=== PATIENT | male | born 1965 | race Caucasian/White ===

== ENCOUNTER 2020-01-27 10:34 | Emergency (ER) | payer OTHER, SELFPAY ==
[2020-01-27 10:35] VITALS: BP 135/85; PULSE 78; RESP 16; TEMP 36.1; O2SAT 100; BMI 20.5
--- NOTE | 2020-01-27 10:58 | ED.VIS.GEN ---
History of Present Illness Chief Complaint: Back Informant: Patient Narrative: She states that 2 days ago he was at work bent and turned to lift up approximately 10 pounds and when he stood up felt a pop in the right low back. He went to a chiropractor twice yesterday. He states he had x-rays. It was suggested that he see a medical doctor. He called his primary care physician and because this was Workmen's Comp. so that they could not see him so he came to the emergency. He denies any bowel or bladder dysfunction. No muscle weakness. He does state that he is better today but still has discomfort in the back and now notices discomfort in the bilateral legs. He denies any loss of muscle strength or weakness. Past Medical History - Allergies and Home Meds Allergies/Adverse Reactions: Allergies naproxen [From Aleve] Allergy (Verified 01/27/20 10:39) Hives sulfamethoxazole [From Bactrim] Allergy (Verified 01/27/20 10:39) Rash trimethoprim [From Bactrim] Allergy (Verified 01/27/20 10:39) Rash Smoking Status: Current some day smoker Review of Systems General: Denies: Chills, Fever, Sweats Eyes: Denies: Visual changes - bilaterally, Diplopia ENT: Denies: Rhinorrhea, Sore throat Cardiovascular: Denies: Chest pain, Palpitations Respiratory: Denies: Dyspnea, Cough, Dyspnea on exertion Gastrointestinal: Denies: Abdominal pain, Nausea, Vomiting, Diarrhea, Melena, Hematochezia Genitourinary: Denies: Dysuria, Hematuria, Frequency Musculoskeletal: Reports: Back pain, Extremity Pain Skin: Denies: Rash, Wounds Neurological: Denies: Headache, Weakness, Numbness Physical Exam Vital Signs/Narrative: Vital Signs Temp Pulse Resp BP Pulse Ox 01/27/20 10:35 97 F L 78 16 135/85 H 100 Inital Vital Signs reviewed: Yes General: Well nourished, Well developed, No Acute Distress Head: Normocephalic, Atraumatic Eyes: Perrl, EOMI ENT: Moist mucous membranes, No rhinorrhea Neck: Supple, Nontender Cardiovascular: Regular rate, Regular rhythm, No murmurs Respiratory: No distress, CTA bilaterally, Chest nontender Abdomen: Soft, Nontender, Nondistended, Normal bowel sounds Back: Normal Inspection, - - Has tenderness to palpation along the lumbar paraspinal musculature in the right SI joint. No tissue texture changes to suggest underlying abscess or infection Extremities: Nontender, No edema Skin: Normal color, No rash Neurological: Alert, Oriented x3, Cranial nerves II-XII grossly intact, Normal Strength, Normal Sensation, - - Antalgic gait Psychological: Normal affect, Normal Mood Diagnostic/Tx/Re-eval - Medical Decision Making Patient will be treated with anti-inflammatories, a few Kershaw, and Flexeril. He will follow-up with Workmen's Comp. Return instructions given. At this time I do not see any indication for emergent imaging (red flags). ED Disposition - Plan for ED Patient: Disposition: Home or Assisted Living Diagnosis: Acute lumbosacral myofascial strain Instructions: ED LUMBAR SPRAIN/STRAIN Prescriptions: cycloBENZAPRine HCl [Flexeril] 10 mg PO TID PRN #20 tab PRN Reason: Muscle Spasm Transmission Status: Pending to [id number] Ibuprofen [Motrin] 800 mg PO TID PRN PRN #20 tab PRN Reason: Pain Or Fever Transmission Status: Pending to [id number] Hydrocodone Bitart/Apap 5-325 [Kershaw 5MG-325MG] 1 tablet PO Q6H PRN PRN 3 Days #10 tablet PRN Reason: Pain Transmission Status: Sent to [facility] Referrals: Clinic,NOW [NON-STAFF] - As soon as possible
== END 2020-01-27 11:36 | disposition home or self-care (01) ==
LOC: ED 11:22
PROVIDERS: Emergency Provider Emergency Medicine; PCP Family Medicine
DX: S39.012A Strain of muscle, fascia and tendon of lower back, initial encounter (principal); F17.200 Nicotine dependence, unspecified, uncomplicated; X50.1XXA Overexertion from prolonged static or awkward postures, initial encounter; Y93.89 Activity, other specified; Y92.89 Other specified places as the place of occurrence of the external cause; Y99.0 Civilian activity done for income or pay
CPT/HCPCS: 99282

== ENCOUNTER → 2020-02-03 | Outpatient (CLI) | payer SELFPAY ==
[2020-01-31 15:10] VITALS: BMI 20.5
--- NOTE | 2020-02-03 16:47 | RAD_ITS ---
STUDY: X-RAY - ACUTE ABDOMINAL SERIES REASON FOR EXAM: Male, 54 years old. PATIENT STATES WHILE AT [employer] A COUPLE OF DAYS AGO SHE NOTICED A MASS ON HIS XRAY AND SHE WANTED HIM TO HAVE A FULL ABD SERIES WITH CHEST XRAY. PATIENT STATES NO HX OF CA OR ANY ABDOMEN OR CHEST COMPLAINTS AT THIS TIME. TECHNIQUE: Single view of the chest. Supine and upright, 2 views(s) of the abdomen were obtained. COMPARISON: Prior chest radiograph of 01/10/2013. FINDINGS: Lung paredes are mildly hyperexpanded without consolidation, atelectasis or pleural effusion. Multiple peripheral calcified granuloma of the left lung. Negative for other mass density. Normal size heart. Normal mediastinum and perez. Normal visualized pulmonary arteries. Normal visualized aortic arch and descending thoracic aorta. There is a non-specific bowel gas pattern. 4 moderate size calcified gallstones. 9 x 3 mm calcification of the right lower quadrant, potential appendicolith. Degenerative disc findings primarily visible at L2-3. RAD/Acute Abdomen Inc Chest IMPRESSION: Mild hyperexpansion consistent with a component of COPD and stable calcified granuloma of the left lung. Otherwise negative for consolidation, atelectasis, pleural effusion or mass density. Normal cardiac size. Unremarkable abdominal bowel gas pattern with no evidence of bowel obstruction or perforation. There are 4 moderate size calcified gallstones and a potential appendicolith in the right lower quadrant. Electronically Signed: Sienna Narayan MD at 20:04 EDT , Service support ,
== END | disposition home or self-care (01) ==
PROVIDERS: PCP Family Medicine; Referring Provider Family Medicine; Visit Provider Family Medicine
DX: R19.00 Intra-abdominal and pelvic swelling, mass and lump, unspecified site (principal)
CPT/HCPCS: 74022

== ENCOUNTER → 2020-02-23 | Outpatient (CLI) | payer OTHER, SELFPAY ==
[2020-02-10 15:02] VITALS: BMI 20.5
--- NOTE | 2020-02-23 12:47 | MRI_ITS ---
STUDY: MRI LUMBAR SPINE WITHOUT CONTRAST REASON FOR EXAM: Male, 54 years old. lumbar strain, lle paresthesias -- lifting injury 1 month ago, pain low back and left leg TECHNIQUE: Standardized fat and water weighted pulse sequences were obtained in the sagittal and axial planes. COMPARISON: None FINDINGS: Lumbar straightening. No significant scoliosis. Conus medullaris terminates normally at the L1 level. No acute fracture. No acute dislocation. No acute bone destruction. Normal paraspinal muscles. Sacrum intact. Normal aorta. Normal retroperitoneum. T12-L1: Schmorl''s nodes. Disc desiccation. Normal bilateral facet joints. Normal central canal and bilateral lateral recesses. Normal bilateral intervertebral neural foramina. L1-2: Schmorl''s nodes with mild endplate spondylosis. Shallow disc bulge. Minimal facet arthrosis. Normal central canal and bilateral lateral recesses. Normal bilateral intervertebral neural foramina. L2-3: Schmorl''s nodes with mild endplate spondylosis. Disc bulge with mild central canal narrowing. Minimal facet arthrosis. Normal bilateral lateral recesses. Normal bilateral intervertebral neural foramina. L3-4: Schmorl''s nodes. Shallow disc bulge. Minimal facet arthrosis. Normal central canal and bilateral lateral recesses. Neural foraminal narrowing without impingement. L4-5: Normal endplates. Shallow disc bulge. Minimal facet arthrosis. Normal central canal and bilateral lateral recesses. Neural foraminal narrowing without impingement. L5-S1: Schmorl''s nodes with mild endplate spondylosis. Shallow disc bulge. Minimal facet arthrosis. Normal central canal and bilateral lateral recesses. Neural foraminal narrowing without impingement. MRI/Spine Lumbar (Routine) IMPRESSION: Multilevel intervertebral disc disease with mild central canal narrowing at the L2-3 level Multilevel neural foraminal narrowing without impingement Lumbar straightening with mild osteoarthritic features Electronically Signed: Lasha Oshea DO at 8:17 EDT Tel , Service support ,
== END | disposition home or self-care (01) ==
PROVIDERS: PCP Family Medicine; Referring Provider Physician Assistant; Visit Provider Physician Assistant
DX: S33.9XXA Sprain of unspecified parts of lumbar spine and pelvis, initial encounter (principal)
CPT/HCPCS: 72148

== ENCOUNTER → 2020-06-08 14:30 | Outpatient (CLI) | payer OTHER, SELFPAY ==
[2020-02-24 15:18] VITALS: BMI 20.5
== END ==
PROVIDERS: PCP Family Medicine; Visit Provider Family Medicine
DX: B34.9 Viral infection, unspecified (principal)
CPT/HCPCS: 87635; U0003

== ENCOUNTER → 2021-04-24 12:16 | Outpatient (CLI) | payer SELFPAY ==
[2021-04-24 12:22] LABS: Bacteria 0 SEEN /hpf (None Seen); Red Blood Cells-Urine 0 SEEN /hpf (0-5); Squamous Epithelial Cells - UA 0 SEEN /hpf (0-5); White Blood Cells 0 SEEN /hpf (0-5)
[2021-04-24 15:44] LABS: Color, Urine Yellow (Yellow); Glucose, Dipstick Normal (Normal); Ketone-Dipstick Negative (Negative); Leukocyte Esterase-Dipstick Negative /ul (Negative); Nitrite-Dipstick Negative (Negative); Occult Blood-Urine 10 /ul (Negative); Protein-Dipstick Negative (Negative); Specific Gravity, Urine 1.025 (1.002-1.030); Urine Bilirubin Dipstick Negative (Negative); Urine Clarity Clear (Clear); Urine Urobilinogen Normal (Normal)
[2021-04-24 15:55] LABS: Mucous, Urine 1+ /hpf (<or=2+)
[2021-04-24 19:42] LABS: Chlamydia Trachomatis by PCR Negative (Negative); Neisserai gonorrhoeae by PCR Negative (Negative); Probe Check PASS; Sample Adequacy Control PASS; Specimen Processing Control PASS
== END ==
PROVIDERS: PCP Family Medicine; Referring Provider Family Medicine; Visit Provider Family Medicine
DX: N45.1 Epididymitis (principal)
CPT/HCPCS: 81001; 87086; 87088; 87491; 87591

== ENCOUNTER 2021-07-26 09:38 | Emergency (ER) | payer OTHER, SELFPAY ==
[2021-07-26 09:40] VITALS: BP 110/81; PULSE 94; RESP 16; TEMP 36.5; O2SAT 99; BMI 16.9
--- NOTE | 2021-07-26 09:58 | EDS_ITS ---
HPI History of Present Illness Chief Complaint: Back Detail of Chief Complaint: Patient presents to the emergency department c omplaint of back pain x1 week Informant: patient Narrative Narrative: Patient has had back pain for 1 week. Patient states that while at work 1 week ago he was lifting some boxes weighing 75 to 80 pounds and he felt sudden onset of severe pain in his mid back. Having severe pain at times with certain movements. He denies any pleuritic pain. Denies any pain radiating to the arms or legs. Patient states that in the past he has had pain in a similar area where his chiropractor told him he may have a rib head out of place. Prior similar symptoms: Yes PFSH [facility] Medical History (Updated 07/26/21 @ 10:[address] Mau Purcell, DO) Arthritis Home Medications acetaminophen 325 mg capsule 325 mg PO ONCE PRN 01/31/20 [History Last Taken Unknown] cyclobenzaprine 10 mg PO TID PRN #20 tablet 07/26/21 [Rx Last Taken Unknown] hydrocodone-acetaminophen 1 tab PO Q4H PRN PRN 2 Days #10 tablet 07/26/21 [Rx Last Taken Unknown] Allergy/AdvReac Type Severity Reaction Status Date / Time naproxen [From Aleve] Allergy Hives Verified 07/26/21 09:40 sulfamethoxazole Allergy Rash Verified 07/26/21 09:40 [From Bactrim] trimethoprim [From Bactrim] Allergy Rash Verified 07/26/21 09:40 Social History (Updated 02/24/20 @ 17:35 by Anand BOSE, LIDYA) Smoking Status: Current some day smoker alcohol intake: never ROS ROS ED Constitutional Constitutional ED: Reports systems reviewed and no addt'l complaints, except as documented; Denies body ache(s), change in weight or chills Eyes Eyes: Denies acute decrease in peripheral vision, change in vision, double vision or loss of vision ENT ENT ED: Reports none; Denies ear pain, lip swelling, loss taste/smell, neck pain, otalgia or sore throat Cardiovascular Cardiovascular: Reports none; Denies abdominal pain, chest pain with activity, leg edema, lightheadedness, palpitations, rapid heart rate or syncope Respiratory/Chest Respiratory/Chest: Reports none; Denies change in mental status, dry cough, dyspnea, hemoptysis, shortness of breath at rest or shortness of breath with exertion Gastrointestinal Gastrointestinal: Reports none; Denies abdominal pain, change in stool character, diarrhea, hematemesis, hematochezia, melena, rectal bleeding or v omiting Genitourinary Genitourinary ED: Reports none; Denies abdominal discomfort, anuria, dysuria, genital pain or polyuria Musculoskeletal Musculoskeletal: Reports none and back pain; Denies arthralgias, difficulty walking, extremity pain, muscle weakness or myalgias Integumentary Reports none; Denies abscess or rash Neurologic Neurologic: Reports none; Denies abnormal gait, confusion, focal weakness, frequent falls, headache(s), loss of vision, numbness, paresthesias, radicular pain, vertigo or weakness Psychiatric Psychiatric: Reports systems reviewed and no addt'l complaints, except as documented and none; Denies behavioral changes, confusion, difficulty concentrating, hallucinations, suicidal ideation, tactile hallucinations or visual hallucinations Endocrine Endocrinology: Denies none, cold intolerance, excessive sweating, fatigue or heat intolerance Hematologic/Lymphatic Hematologic/Lymphatic: Reports none; Denies anemia, easy bleeding or easy bru ising Allergic/Immunologic Allergic/Immunologic ED: Denies as per HPI, none, lip swelling, mouth swelling, throat swelling, tongue swelling or hives EXAM Physical Exam Const Vital Signs: 07/26/21 09:40 Temperature 97.7 F L Temperature Source Temporal Pulse Rate 94 Respiratory Rate 16 Blood Pressure 110/81 H Blood Pressure Mean 90 Pulse Ox 99 Oxygen Delivery Method Room Air Positive well nourished and well developed General Appearance ED: well developed and NAD HEENT Reports TM's clear and moist mucous membranes normocephalic and atraumatic; Negative for trauma or tenderness Tympanic Membrane ED: Yes TM's clear Eyes PERRL and EOMs intact bilaterally General Eye ED: Negative for pale conjunctiva or scleral icterus Neck no lymphadenopathy, supple and no JVD General: Negative for tenderness Chest Wall inspection of chest normal and palpation of chest normal Chest: Negative for tenderness Resp normal respiratory effort and clear to auscultation bilaterally Effort and Inspection: Negative for respiratory distress or pain with movement Auscultation: Negative for rhonchi, wheezes or diminished lung sounds Cardio regular rate, regular rhythm, S1 normal heart sound, S2 normal heart sound and no murmurs Peripheral Pulses: pulses 2+ throughout GI normal to inspection, nondistended, normoactive bowel sounds, soft to palpation, non-tender, non-distended and no masses Back/Spine no CVA tenderness Back/Spine Narrative: Patient with tenderness to palpation in the midline to the lower thoracic spine. There is no ecchymosis or bruising or evidence of trauma. There is no erythema or warmth noted. Negative straight leg raises. Deep tendon reflexes are plus 2 out of 4 bilaterally at the patella and Achilles. Patient has normal L5 extension bilaterally. Extremity normal to inspection General Extremety ED: Negative for edema General Extremity: Negative for edema Neuro oriented x3, CN's II-XII intact bilaterally, no sensory deficits noted and gait normal Sensorium / Orientation: awake, alert, oriented to person, oriented to place and oriented to time Motor Exam: strength 5/5 throughout and strength abnormal Psych mental status grossly normal Skin no rashes or lesions noted and no wounds MDM MDM MDM Narrative Medical decision making narrative: Patient had x-rays of the thoracic spine obtained and interpreted by radiology and myself as no acute fractures. Patient was noted to have some disc space narrowing but otherwise nothing else acute. Patient does not want work restrictions. Patient will be given a prescription for Flexeril and a few [place] for pain. He is advised to follow-up with corporate care in 3 to 5 days. Radiography Diagnostic Testing: Clinical Impression(s) from Imaging Studies Thoracic Spine X-Ray 07/26/21 10:10 IMPRESSION: Multilevel disc space narrowing and spondylosis. Electronically Signed: Terry Adame MD at 10:29 EST , Service support , Discharge Plan Triage Chief Complaint: Back ED Provider: Mau Purcell Dx/Rx/DC Orders Clinical Impression: Acute thoracic myofascial strain Instructions: ED Back Sprain/Strain Prescriptions: New cyclobenzaprine [cyclobenzaprine] 10 MG tablet 10 mg PO TID PRN (Reason: Muscle Spasm) Qty: 20 RF: 0 hydrocodone-acetaminophen [hydrocodone-acetaminophen] 1 TABLET tablet 1 tab PO Q4H PRN PRN (Reason: Pain) 2 Days Qty: 10 RF: 0 No Action acetaminophen [Tylenol] 325 mg capsule 325 mg PO ONCE PRNRF: 0 Primary Care Provider: Seb Mccormick Referrals: [facility] [GROUP OF PHYSICIANS] - 3-5 Days Seb Mccormick MD [Primary Care Provider] - Disposition Disposition: Home, Self Care
--- NOTE | 2021-07-26 10:10 | RAD_ITS ---
STUDY: X-RAY - THORACIC SPINE REASON FOR EXAM: Male, 56 years old. Pain, injury TECHNIQUE: 3 view(s) of the thoracic spine were obtained. COMPARISON: None. FINDINGS: Normal kyphosis of the thoracic spine. There is no substantial scoliosis. There is demineralization of the thoracic spine with endplate spondylosis. There is multilevel disc space narrowing of the thoracic spine. The soft tissue structures are unremarkable. RAD/Thoracic Spine 3 Views IMPRESSION: Multilevel disc space narrowing and spondylosis. Electronically Signed: Terry Adame MD at 10:29 EST , Service support ,
== END 2021-07-26 10:56 | disposition home or self-care (01) ==
PROVIDERS: Emergency Provider Emergency Medicine; PCP Family Medicine; Visit Provider Emergency Medicine
DX: S39.012A Strain of muscle, fascia and tendon of lower back, initial encounter (principal); F17.200 Nicotine dependence, unspecified, uncomplicated; X58.XXXA Exposure to other specified factors, initial encounter
CPT/HCPCS: 72072; 99282

== ENCOUNTER → 2024-02-06 | Outpatient (CLI) | payer SELFPAY ==
--- NOTE | 2024-02-06 13:00 | US_ITS ---
EXAM: US SOFT TISSUES HEAD AND NECK, THYROID CLINICAL INDICATION: Nontoxic single thyroid nodule TECHNIQUE: Greyscale and color doppler imaging was performed of the thyroid gland. COMPARISON: No relevant prior studies available. FINDINGS: LEFT THYROID LOBE: The left thyroid lobe measures 3.9 x 1.8 x 1.7 cm. Homogeneous echotexture with normal vascularity. No thyroid nodules are present. RIGHT THYROID LOBE: The right thyroid lobe measures 5.1 x 1.4 x 1.5 cm. Homogeneous echotexture with normal vascularity. No thyroid nodules are present. ISTHMUS: The thyroid isthmus measures 0.21 cm. No thyroid nodules are present. US/Thyroid IMPRESSION: No acute thyroid findings. No thyroid nodule identified. Electronically Signed: Ricci Camargo DO at 21:46 EDT ,
== END | disposition home or self-care (01) ==
PROVIDERS: PCP Family Medicine; Referring Provider Family Medicine; Visit Provider Family Medicine
DX: E04.1 Nontoxic single thyroid nodule (principal)
CPT/HCPCS: 76536

== ENCOUNTER 2025-05-04 16:46 | Emergency (ER) | payer OTHER, SELFPAY ==
[2025-05-04] VITALS (7 sets, daily range): BP systolic 124–141; BP diastolic 78–85; PULSE 65–81; RESP 12–24; TEMP 36.6; O2SAT 98–99; BMI 19.5
--- NOTE | 2025-05-04 17:01 | ED.RN ---
Spoke with Franklin Albert) systems manager of [facility]. He states that he is going to call [facility] to see if he needs drug tested.
--- NOTE | 2025-05-04 17:23 | EX.ED.GENINJ ---
HPI History of Present Illness Chief Complaint: Other, Pain/Inj Informant: patient and spouse/S.O. 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 At work today he was 27 with an outlet. And got electrocuted. No LOC. Said it went to his left hand. Since that time he has developed some mild nausea and chest discomfort. This occurred at 945 this morning. Send just feels exhausted. No cardiac history. Said he felt fine prior to being electrocuted. Prior similar symptoms: No Recent Illness/Hospitalization: No [facility] Medical History (Updated 05/04/25 @ 18:[address] Rogers Kunz MD) Arthritis Home Medications ?Medication ?Instructions ?Recorded ?Last Taken ?Type NK 05/04/25 Unknown History Allergy/AdvReac Type Severity Reaction Status Date / Time naproxen (From Aleve) Allergy Hives Verified 05/04/25 16:51 sulfamethoxazole (From Allergy Rash Verified 05/04/25 16:51 Bactrim) trimethoprim (From Bactrim) Allergy Rash Verified 05/04/25 16:51 Social History (Updated 02/24/20 @ 17:35 by Anand BSOE, PA) Smoking Status: Current some day smoker tobacco type: cigarettes alcohol intake: never ROS ROS ED ROS Narrative Denies recent illness. Constitutional Constitutional ED: Denies chills or fever(s) ENT ENT ED: Denies ear pain Cardiovascular Cardiovascular: Denies chest pain Respiratory/Chest Respiratory/Chest: Denies cough or dyspnea Gastrointestinal Gastrointestinal: Denies abdominal pain Genitourinary Genitourinary ED: Denies dysuria or hematuria Musculoskeletal Musculoskeletal: Denies arthralgias Integumentary Denies abscess Neurologic Neurologic: Denies headache(s) Psychiatric Psychiatric: Denies anxiety or depression Endocrine Endocrinology: Denies cold intolerance Hematologic/Lymphatic Hematologic/Lymphatic: Denies easy bleeding, easy bruising or lymphadenopathy Allergic/Immunologic Allergic/Immunologic ED: Denies mouth swelling, tongue swelling or urticaria EXAM Physical Exam Narrative Exam Narrative: 59-year-old male sitting upright in bed. Vital signs stable afebrile. Pulse ox 99% on room air no hypoxia. at bedside. H EENT exam pupils round react to light. Moist mutes membranes. Neck nontender no JVD. No lymphadenopathy. Lungs clear to auscultation bilaterally. Heart regular rhythm rate about 80 no murmur. Chest wall ribs nontender. Abdomen soft nontender. Normal bowel sounds without peritoneal signs. No distention. Moving all 4 extremities. 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 No dominguez. Normal radial pulses. Dorsi plantarflexion intact. Calves nontender. No edema. No cords. Normal range of motion. Neurologically is awake alert. Answer questions following commands. Back nontender. Const Vital Signs: 05/04/25 16:47 05/04/25 17:20 05/04/25 17:34 Temperature 97.9 F Temperature Source Temporal Pulse Rate 77 78 Respiratory Rate 17 12 Respiratory Effort Respiratory Pattern Blood Pressure 125/85 H Blood Pressure Mean 98 Pulse Ox 99 99 Oxygen Delivery Method Room Air Room Air 05/04/25 17:35 05/04/25 17:46 05/04/25 18:00 Temperature Temperature Source Pulse Rate 81 67 Respiratory Rate 24 H 12 Respiratory Effort Normal Non-Labored Respiratory Pattern Normal Blood Pressure Blood Pressure Mean Pulse Ox 98 99 Oxygen Delivery Method 05/04/25 19:00 05/04/25 20:00 Temperature Temperature Source Pulse Rate 77 65 Respiratory Rate 16 18 Respiratory Effort Respiratory Pattern Blood Pressure 141/78 H 125/84 H Blood Pressure Mean 99 97 Pulse Ox 98 98 Oxygen Delivery Method Room Air Room Air MDM MDM MDM Narrative Medical decision making narrative: 59-year-old male with atypical nonexertional chest pain and to be electrocuted at work today at 945 this morning. Exam benign. No dominguez. Cardiac workup will be done. Repeat exam patient is doing well at 6:37 PM. Exam benign and unchanged. We discussed test current test results. Awaiting for second troponin. If that is unremarkable be discharged to home. Patient doing well at 8:17 PM. Up for her today has not had any recent exertional chest pain or exertional dyspnea. Be discharged home outpatient follow-up with primary care physician. Follow-up for atypical chest pain. Patient and are comfortable with plan. History & Record Review Discussion w/independent historian: Patient and Family Additional record(s) reviewed:: Prior outpatient record and Prior labs Lab Data Attestation: I reviewed the patient's lab results. Lab results narrative: CBC unremarkable. White count of 6. H&H 14 and 41. Platelets 382. Chemistries show gap of 10. BUN and creatinine 11 and 0.8. Glucose 126. Troponin 7. 2-hour troponin is 11. CPK was 119. Labs: Laboratory Results - last 24 hr 05/04/25 05/04/25 17:35 19:40 WBC 6.7 RBC 4.56 L Hgb 14.2 Hct 41.7 MCV 91.4 MCH 31.1 MCHC 34.1 RDW Std Deviation 45.1 H RDW Coeff of Stephani 13.2 Plt Count 382 MPV 9.0 Immature Gran % (Auto) 0.200 Neut % (Auto) 49.3 Lymph % (Auto) 38.3 [place] % (Auto) 9.6 Eos % (Auto) 1.8 Baso % (Auto) 0.8 Absolute Neuts (auto) 3.3 Absolute Lymphs (auto) 2.55 Nucleated RBC % 0 Sodium 139 Potassium 3.7 Chloride 104 Carbon Dioxide 26.0 Anion Gap 10 BUN 11 Creatinine 0.89 Estim Creat Clear Calc 72.88 Est GFR (MDRD) Non-Af 98 BUN/Creatinine Ratio 12.0 Glucose 126 H Calcium 9.6 Total Creatine Kinase 119 Troponin T High Sens 7 Troponin T Hi Sens 2 Hr 11 Radiography Chest X-Ray - ED: 2 View, Read by ED Physician, Normal, Heart, Lungs, Mediastinum, Bony Structures, No Acute Disease and Chronic Changes Diagnostic Testing: Clinical Impression(s) from Imaging Studies Chest X-Ray 05/04/25 17:42 IMPRESSION: No focal consolidation. Scattered 3-4 mm small radiodensities about the left lung may reflect pulmonary nodules; consider CT if there is further concern. Reading Location: [facility] Chest x-ray, 2 views, AP and lateral, turbid by myself shows normal cardiac silhouette. No mediastinum. Normal lung paredes. Chronic changes no acute process. Rhythm Strip Rhythm Strip: Sinus Rhythm Rate: 76 Ectopy: None EKG Initial EKG: Attestation: I personally reviewed and interpreted this EKG as follows: Interpretation: Sinus Rhythm and No Acute Injury Pattern Comments: Normal sinus rhythm rate of 76 no acute signs of MS or ischemia. Discharge Plan Triage Chief Complaint: Other, Pain/Inj ED Provider: Rogers Kunz Dx/Rx/DC Orders Clinical Impression: Encounter related to worker's compensation claim, Electrocution, Atypical chest pain Instructions: ED Chest Pain, Uncertain Cause, ED Electrical Injury Prescriptions: No Action NK Primary Care Provider: Seb Mccormick Referrals: Seb Mccormick MD [Primary Care Provider, Family Practice] - 1 Week if not improving Activity Restrictions/Additional Instructions: Follow-up with your doctor if not improving. There is no signs of heart attack or heart injury from the electric shock. If you continue to have chest discomfort however follow-up with your primary care physician to discuss possibly an outpatient stress test. Print Language: Latvian Disposition Disposition: Home, Self Care
--- NOTE | 2025-05-04 17:30 | EKG12_ITS ---
Test Reason : CP
--- NOTE | 2025-05-04 17:42 | RAD_ITS ---
PROCEDURE: RAD/Chest PA and Lateral
[2025-05-04 18:03] LABS: Hematocrit 41.7 % (40-54); Hemoglobin 14.2 g/dL (13.0-16.5); Immature Granulocytes Count 0.010 X10^3/uL (0.0-0.0); Mean Corp Hgb Conc 34.1 g/dL (32-36); Mean Corpuscular Volume 91.4 fL (80-94); Mean Platelet Vol. 9.0 fl (6.2-12.0); NRBC Flagged by Analyzer 0 % (0-5); Platelet Count 382 K/mm3 (150-450); RBC Distribution Width CV 13.2 % (11.6-14.6); RBC Distribution Width SD 45.1 fl (35.1-43.9); Red Blood Count 4.56 M/mm3 (4.6-6.2); White Blood Count 6.7 K/mm3 (4.4-11.0)
[2025-05-04 18:27] LABS: Anion Gap 10 (5-15); BUN 11 mg/dL (4-19); BUN/Creat Ratio 12.0 RATIO (10-20); CPK Total, Creatine Kinase 119 U/L (24-195); Calcium,Total 9.6 mg/dL (7.6-11.0); Carbon Dioxide 26.0 mmol/L (21.0-32.0); Chloride 104 mmol/L (98-108); Estimated Creatinine Clearance 72.88 ml/min (50-250); Glucose 126 mg/dL (70-99); Potassium 3.7 mmol/L (3.3-5.1); Troponin T High Sensitivity 7 ng/L (<=22)
[2025-05-04 20:06] LABS: Troponin T High Sens 2 HR 11 ng/L (<=22)
== END 2025-05-04 20:24 | disposition home or self-care (01) ==
PROVIDERS: Emergency Provider Emergency Medicine; PCP Family Medicine; Visit Provider Emergency Medicine
DX: T75.4XXA Electrocution, initial encounter (principal); R11.0 Nausea; F17.210 Nicotine dependence, cigarettes, uncomplicated; Y99.0 Civilian activity done for income or pay
CPT/HCPCS: 71046; 80048; 82550; 84484; 85025; 93005; 99283; A4216

== ENCOUNTER → 2025-06-17 | Outpatient (CLI) | payer BC, SELFPAY ==
--- NOTE | 2025-06-17 12:35 | RAD_ITS ---
PROCEDURE: CHEST PA AND LATERAL 06/17/2025 REASON FOR EXAM: PNEUMONIA TECHNIQUE: Procedure Code: RADCXR Modality: DX Procedure: CHEST PA AND LATERAL COMPARISON: 05/04/2025 FINDINGS: No focal consolidation. Stable scattered left lung pulmonary nodules. No pleural effusion or pneumothorax. Cardiac silhouette is within normal limits. No acute fractures. RAD/Chest PA and Lateral IMPRESSION: No focal consolidations. Reading Location: [id number]
[2025-06-17 15:12] LABS: Hematocrit 41.4 % (40-54); Hemoglobin 13.9 g/dL (13.0-16.5); Immature Granulocytes Count 0.010 X10^3/uL (0.0-0.0); Mean Corp Hgb Conc 33.6 g/dL (32-36); Mean Corpuscular Volume 92.8 fL (80-94); Mean Platelet Vol. 8.8 fl (6.2-12.0); NRBC Flagged by Analyzer 0 % (0-5); Platelet Count 370 K/mm3 (150-450); RBC Distribution Width CV 13.9 % (11.6-14.6); RBC Distribution Width SD 47.3 fl (35.1-43.9); Red Blood Count 4.46 M/mm3 (4.6-6.2); White Blood Count 5.2 K/mm3 (4.4-11.0)
[2025-06-17 15:36] LABS: Anion Gap 10 (5-15); BUN 9 mg/dL (4-19); BUN/Creat Ratio 10.3 RATIO (10-20); Calcium,Total 9.0 mg/dL (7.6-11.0); Carbon Dioxide 28.8 mmol/L (21.0-32.0); Chloride 102 mmol/L (98-108); Glucose 82 mg/dL (70-99); Potassium 3.9 mmol/L (3.3-5.1)
== END | disposition home or self-care (01) ==
LOC: MTLAB 12:34
PROVIDERS: PCP Family Medicine; Referring Provider Family Medicine; Visit Provider Family Medicine
DX: J18.9 Pneumonia, unspecified organism (principal)
CPT/HCPCS: 36415; 71046; 80048; 85025

== ENCOUNTER → 2025-07-06 | Outpatient (CLI) | payer BC, SELFPAY ==
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
[2025-07-06 17:27] LABS: Hematocrit 38.9 % (40-54); Hemoglobin 13.0 g/dL (13.0-16.5); Immature Granulocytes Count 0.020 X10^3/uL (0.0-0.0); Mean Corp Hgb Conc 33.4 g/dL (32-36); Mean Corpuscular Volume 91.7 fL (80-94); Mean Platelet Vol. 9.0 fl (6.2-12.0); NRBC Flagged by Analyzer 0 % (0-5); Platelet Count 398 K/mm3 (150-450); RBC Distribution Width CV 13.8 % (11.6-14.6); RBC Distribution Width SD 46.9 fl (35.1-43.9); Red Blood Count 4.24 M/mm3 (4.6-6.2); White Blood Count 9.3 K/mm3 (4.4-11.0)
[2025-07-06 17:43] LABS: AST(SGOT) 32 U/L (<=37); Alanine Aminotransfer ALT/SGPT 23 U/L (<=46); Albumin, Serum 4.2 g/dL (3.4-4.8); Alkaline Phosphatase 65 U/L (40-129); Anion Gap 9 (7-18); BUN 7 mg/dL (4-19); BUN/Creat Ratio 8.6 RATIO (10-20); Calcium,Total 9.4 mg/dL (7.6-11.0); Carbon Dioxide 29.4 mmol/L (20.0-29.0); Chloride 102 mmol/L (96-106); Cholesterol 223 mg/dL (<=200); Globulin 2.6 g/dL (2.2-4.2); Glucose 77 mg/dL (70-99); Low Density Lipoprotein Calc. 144 mg/dL; Potassium 3.5 mmol/L (3.5-5.1); Triglycerides 98 mg/dL; Very Low Density Lipoprotein 20 mg/dL (5-40); cholesterol:hdl ratio screen 3.59
== END | disposition home or self-care (01) ==
LOC: MFPLAB 15:33
PROVIDERS: PCP Family Medicine; Visit Provider Family Medicine
DX: R07.9 Chest pain, unspecified (principal)
CPT/HCPCS: 36415; 80053; 80061; 85025